=== PATIENT | female | born 1990 | race Hispanic/Latino ===

== ENCOUNTER 2016-12-17 04:28 | Emergency (ER) | payer OTHER, SELFPAY ==
[2016-12-17] MEDS ORDERED: Adacel (T-DAP) 0.5 ML VIAL ONE (05:09)
[2016-12-17 05:33] LABS: BHCG - Serum Negative (NEGATIVE); Pregs Control Background? CLEAR/WHITE (CLR/WHITE); Pregs Control Bar Appear? YES (CONTROL BAR)
[2016-12-17] MEDS ORDERED: Sodium Chloride Irrig Solution 250 ML BOT ONE (06:59)
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
== END 2016-12-17 07:40 | disposition home or self-care (01) ==
LOC: MADERS 04:28
DX: S01.112A Laceration without foreign body of left eyelid and periocular area, initial encounter (principal); S43.401A Unspecified sprain of right shoulder joint, initial encounter; V49.9XXA Car occupant (driver) (passenger) injured in unspecified traffic accident, initial encounter
CPT/HCPCS: 12011; 36415; 70450; 72125; 84703; 90471; 90715